=== PATIENT | male | born 1945 | race Two or more races ===

== ENCOUNTER 2023-04-11 09:45 | Inpatient (IN) | payer OTHER ==
[~2023-04-11] VITALS: Ht 170.2 cm; Wt 74.8 kg
[2023-04-11] MEDS ORDERED: GEMFIBROZIL600 MG PO (10:46)
[2023-04-11] MEDS ORDERED: AMLODIPINE BESY10 MG PO (10:46)
[2023-04-11] MEDS ORDERED: HYDRALAZINE HCL50 MG PO (10:47)
[2023-04-11] MEDS ORDERED: LEVO-T25 MCG PO (10:47)
[2023-04-11] MEDS ORDERED: PROTONIX40 MG PO (10:47)
[2023-04-11] MEDS ORDERED: TAMS0.4C PO (10:47)
[2023-04-11] MEDS ORDERED: LUMIGAN2.5 M1 OP (10:48)
[2023-04-11] MEDS ORDERED: COSOPT PF EYE1 EACH OP (10:48)
== END 2023-04-19 11:48 | disposition home or self-care (01) | DRG 331 ==
LOC: O/R 04-16 05:50 → SURH 04-16 05:50 → SURG 04-16 07:00 → SURH 04-16 13:00
PROVIDERS: ADMIT Surgery; ATTEND Surgery
PROC: 0WQF4ZZ Repair Abdominal Wall, Percutaneous Endoscopic Approach (ICD-10-PCS; 2023-04-16)
PROC: 0DBL4ZZ Excision of Transverse Colon, Percutaneous Endoscopic Approach (ICD-10-PCS; 2023-04-16)
PROC: 0DTF4ZZ Resection of Right Large Intestine, Percutaneous Endoscopic Approach (ICD-10-PCS; principal; 2023-04-16 07:00)
DX: D12.3 Benign neoplasm of transverse colon (principal); K42.9 Umbilical hernia without obstruction or gangrene; I11.9 Hypertensive heart disease without heart failure; E03.9 Hypothyroidism, unspecified

== ENCOUNTER 2023-09-03 05:20 | Day surgery (SDC) | payer OTHER ==
[2023-08-30 12:36] LABS: PH,URINE 6.5 (5.0-8.0); URINE APPEARANCE Clear; URINE BILIRRUBIN Negative (NEGATIVE); URINE BLOOD Negative; URINE COLOR Yellow; URINE GLUCOSE Negative (NEGATIVE); URINE LEUKOCYTE Trace; URINE NITRATE Negative
[2023-08-30 12:41] LABS: URINE BACTERIA 12.5 uL (0.0-1933); URINE EPITHELIAL CELLS 2.1 uL (0.0-38.8); URINE RBC 6.3 uL (0.0-20.8); URINE WBC 19.7 uL (0.0-23.2)
[2023-08-30 12:43] LABS: HEMATOCRIT 43.9 % (39.0-48.0); MEAN CELL VOLUME 89.8 fL (80.0-100.00); MEAN CORPUSCULAR HEMOGLOBIN 30.8 pg (27.00-32.0); MEAN CORPUSCULAR HGB CONC 34.2 g/dl (32.0-36.0); PLATELET COUNT 226 K/uL (150-450); RED BLOOD COUNT 4.88 M/uL (4.00-6.00)
[2023-08-30 13:07] LABS: URINE PROTEIN 100 (NEGATIVE)
[2023-08-30 13:15] LABS: INR 0.97; PARTIAL THROMBOPLASTIN TIME 25.6 SECONDS (22.0-34.0); PROTHROMBIN TIME 10.2 SECONDS (9.0-11.5)
[2023-08-30 13:19] LABS: ALBUMIN 3.7 gm/dL (3.4-5.0); BILIRUBIN TOTAL 0.56 mg/dL (0.3-1.2); CALCIUM 9.6 mg/dL (8.5-10.1); CREATININE SERUM 1.06 mg/dL (0.70-1.30); GFR 67.93; GLOBULINA 4.3 G/DL (2.4-3.5); POTASSIUM 3.79 mEq/L (3.5-5.1)
[~2023-09-03 05:20] MED LIST: AMLODIPINE BESY10 MG PO; COSOPT PF EYE1 EACH OP; GEMFIBROZIL600 MG PO; HYDRALAZINE HCL50 MG PO; LEVO-T25 MCG PO; LUMIGAN2.5 M1 OP; PROTONIX40 MG PO; TAMS0.4C PO
== END 2023-09-03 14:20 | disposition home or self-care (01) ==
LOC: CIR.AMB 05:20
PROVIDERS: ATTEND Surgery
DX: K40.20 Bilateral inguinal hernia, without obstruction or gangrene, not specified as recurrent (principal); Z20.822 Contact with and (suspected) exposure to COVID-19
CPT/HCPCS: 49505; C1781